=== PATIENT | female | born 1995 | race American Indian/Alaskan Native ===

== ENCOUNTER 2017-03-07 19:18 | Emergency (ER) | payer MEDICAID ==
[2017-03-07 19:47] VITALS: BP 125/71
[2017-03-07] MEDS ORDERED: Cephalexin 500 MG Cap PO ONE (21:07)
[2017-03-07] MEDS ORDERED: Phenazopyridine 95 MG Tab PO ONE (21:07)
--- NOTE | 2017-03-07 21:11 | EDM.PDOC ---
ED HPI GENERAL MEDICAL PROBLEM - General Chief Complaint: Genitourinary Problem Stated Complaint: BLADDER INFECTION Time Seen by Provider: 03/07/17 21:05 Source of Information: Reports: Patient History Limitations: Reports: No Limitations - History of Present Illness INITIAL COMMENTS - FREE TEXT/NARRATIVE: This 21 yo female patient reports to the ED with a 1 week history of lower abdominal pain and dysuria. The patient has not been seen in the Clinic. Onset: Gradual Duration: Week(s): (1), Constant Location: Reports: Abdomen Quality: Reports: Burning Severity: Moderate Improves with: Reports: None Worsens with: Reports: None Associated Symptoms: Reports: No Other Symptoms Lower Groin Pain Score (Numeric/FACES): 6 - Related Data Allergies Allergy/AdvReac Type Severity Reaction Status Date / Time No Known Allergies Allergy Verified 03/07/17 19:50 Home Meds: Home Meds . 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 Musculoskeletal History: Reports: None Neurological History: Reports: None Psychiatric History: Reports: Anxiety, Depression, None Endocrine/Metabolic History: Reports: None Hematologic History: Reports: None Immunologic History: Reports: None Oncologic (Cancer) History: Reports: None Dermatologic History: Reports: None - Infectious Disease History Infectious Disease History: Reports: None - Past Surgical History Head Surgeries/Procedures: Reports: None Social & Family History - Family History Family Medical History: Noncontributory - Tobacco Use Smoking Status *Q: Current Every Day Smoker Years of Tobacco use: 5 Packs/Tins Daily: 0.1 Used Tobacco, but Quit: No Second Hand Smoke Exposure: Yes - Caffeine Use Caffeine Use: Reports: None - Alcohol Use Days Per Week of Alcohol Use: 3 Number of Drinks Per Day: 3 Total Drinks Per Week: 9 - Recreational Drug Use Recreational Drug Use: No ED ROS GENERAL - Review of Systems Review Of Systems: ROS reveals no pertinent complaints other than HPI. ED EXAM, RENAL/ - Physical Exam Exam: See Below Exam Limited By: No Limitations General Appearance: Alert, WD/WN, Mild Distress Eye Exam: Bilateral Eye: EOMI, Normal Inspection Ears: Normal External Exam Nose: Normal Inspection, Normal Mucosa, No Blood Throat/Mouth: Normal Inspection, Normal Lips, Normal Teeth Head: Atraumatic, Normocephalic Neck: Normal Inspection, Full Range of Motion Respiratory/Chest: No Respiratory Distress, Lungs Clear, Normal Breath Sounds Cardiovascular: Normal Peripheral Pulses, Regular Rate, Rhythm (Female) Exam: Deferred Rectal (Female) Exam: Deferred Extremities: Normal Inspection, Normal Range of Motion, Non-Tender, Normal Capillary Refill, No Pedal Edema Neurological: Alert, Oriented, CN II-XII Intact, Normal Cognition, Normal Gait, Normal Reflexes, No Motor/Sensory Deficits Psychiatric: Normal Affect, Normal Mood Skin Exam: Warm, Dry, Intact, Normal Color, No Rash Lymphatic: No Adenopathy Course - Vital Signs Last Recorded V/S: Last Vital Signs Temp 36.8 C 03/07/17 19:45 Pulse 82 03/07/17 19:45 Resp 20 03/07/17 19:45 BP 125/71 03/07/17 19:45 Pulse Ox 100 03/07/17 19:45 - Orders/Labs/Meds Labs: Laboratory Tests 03/07/17 Range/Units 19:51 Urine Color Yellow (YELLOW) Urine Appearance Cloudy (CLEAR) Urine pH 6.0 (5.0-9.0) Ur Specific [place] 1.025 (1.005-1.030) Urine Protein 30 H (NEGATIVE) Urine Glucose (UA) Negative (NEGATIVE) Urine Ketones Negative (NEGATIVE) Urine Occult Blood Small H (NEGATIVE) Urine Nitrite Positive H (NEGATIVE) Urine Bilirubin Negative (NEGATIVE) Urine Urobilinogen 0.2 (0.2-1.0) mg/dL Ur Leukocyte Esterase Moderate H (NEGATIVE) Urine RBC 5-10 H /HPF Urine WBC >100 H (0-5/HPF) /HPF Ur Epithelial Cells Moderate H /HPF Urine Bacteria Many H (0-FEW/HPF) /HPF Meds: Medications Discontinued Medications Generic Name Dose Route Start Last Admin Trade Name Freq PRN Reason Stop Dose Admin Cephalexin 500 mg 03/07/17 21:07 Keflex PO 03/07/17 21:08 ONETIME ONE Phenazopyridine HCl 190 mg 03/07/17 21:07 Urinary Pain Relief PO 03/07/17 21:08 ONETIME ONE Departure - Departure Time of Disposition: 21:08 Disposition: Home, Self-Care 01 Condition: fair Clinical Impression: UTI, Urinary tract infectious disease - Discharge Information Instructions: Urinary Tract Infection, Adult, [id number] Forms: ED Department Discharge Care Plan Goals: The patient was advised of the examination and lab results during the visit. The patient was given an oral dose of Keflex and Pyridium while in the ED. The patient was discharged with a script for Keflex (500 mg) to take 1 by mouth 2 times per day for 7 days and Pyridium #6 to take 1 by mouth 3 times per day. If the patient has any additional symptoms or concerns, the patient should follow- up with her primary care facility or return to the emergency department.
== END 2017-03-07 21:17 | disposition home or self-care (01) ==
LOC: DL.ED 19:18
DX: N39.0 Urinary tract infection, site not specified (principal); F41.9 Anxiety disorder, unspecified; F32.9 Major depressive disorder, single episode, unspecified; F17.210 Nicotine dependence, cigarettes, uncomplicated
CPT/HCPCS: 81001; 87086; 99283; A9270; 87088; 87186

== ENCOUNTER 2017-11-26 10:43 | Inpatient (IN) | payer MEDICAID ==
[2017-11-26] MEDS ORDERED: Misoprostol 400 MCG (4 X 100 MCG TAB) RECTAL PRN (11:09)
[2017-11-26] MEDS ORDERED: Tranexamic Acid 1,000 MG in Sodium Chloride 0.9% 100 ML IV PRN (11:09)
[2017-11-26] MEDS ORDERED: Ondansetron 4 MG/2 ML SDV IV PRN (11:09)
[2017-11-26] MEDS ORDERED: Nalbuphine 20 MG/1 ML Amp IM PRN (11:09)
[2017-11-26] MEDS ORDERED: Methylergonovine 0.2 MG/1 ML Amp IM PRN (11:09)
[2017-11-26] MEDS ORDERED: Lactated Ringers 500 ML IV ONE (11:09)
[2017-11-26] MEDS ORDERED: Lidocaine 1% 30 ML SDV INJECT PRN (11:09)
[2017-11-26] MEDS ORDERED: Acetaminophen 325 MG Tab PO PRN (11:09)
[2017-11-26] MEDS ORDERED: Sodium Chloride 0.9% 10 ML Syringe FLUSH PRN (11:09)
[2017-11-26] MEDS ORDERED: Carboprost Tromethamine 250 MCG/1 ML Amp IM PRN (11:09)
[2017-11-26] MEDS ORDERED: Lactated Ringers 1,000 ML IV SCH (11:15)
[2017-11-26] MEDS ORDERED: Penicillin G Potassium 5 MILLUNITS in Sodium Chloride 0.9% 100 ML IV ONE (11:45)
[2017-11-26] MEDS ORDERED: Nalbuphine 20 MG/1 ML Amp IM ONE (13:05)
[2017-11-26] MEDS ORDERED: fentaNYL 100 MCG/2 ML SDV IVPUSH ONE ×2 (13:08→13:13)
[2017-11-26] MEDS ORDERED: Oxytocin/Normal Saline 30 UNIT/500 ML BAG IV SCH (14:00)
[2017-11-26] MEDS ORDERED: Acetaminophen/oxyCODONE 325-5 MG Tab PO PRN (14:38)
--- NOTE | 2017-11-26 15:06 | HP ---
DATE OF SERVICE: REASON FOR ADMISSION: Established labor. HISTORY OF PRESENT ILLNESS: A 22-year-old, 2, para 1-0-0-1, presenting at 39 weeks and 5 days' gestation, pablo regularly every 1 - 3 minutes. The patient was seen in clinic yesterday with Dr. Burciaga. She had her membranes stripped and was 1.5 cm dilated. Per patient, she has been dilated for the past two weeks at about 1.5 cm. In the past two weeks, she has had nausea, no vomiting. Denies swelling of hands and feet. No headaches. No vision changes. Gestational age based on LMP, confirmed by 21 week ultrasound. Blood type is O positive. She is group B strep positive. Antibody screen negative. Rubella immune. RPR nonreactive. Hepatitis B serum antigen nonreactive. Hep C nonreactive. She has had no quad screen this . One-hour glucose tolerance of 116. Influenza vaccine May 21, 2017. Tdap vaccine October 21, 2017. HIV negative. TSH normal. PAST OBSTETRICAL HISTORY: One prior resulting in of viable 2515 g male at 40 0/7 weeks gestation. That was complicated by intrauterine growth restriction. PAST MEDICAL HISTORY: Schizoaffective-depression and generalized anxiety disorder. Mild hearing impairment. GERD. HSIL on Pap smear in 03/2017 with colposcopy 05/18/17 MEDICATIONS: 1. Zofran for nausea. 2. vitamins. ALLERGIES: None. FAMILY HISTORY: Mother with bipolar disorder. No known diseases in father. Hypertension and diabetes on mother's side of family. Lung cancer in maternal grandfather. Family history is negative for Down syndrome, cystic fibrosis, anemia, bleeding, or clotting disorders. SOCIAL HISTORY: Lives with significant other, Manolo Hearn. This is their first child together. Manolo works at [employer]. 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 They live together in [place]. IMMUNIZATIONS: Up-to-date for immunizations including flu shot and Tdap during this . FEEDING: Will be attempting to breastfeed. REVIEW OF SYSTEMS: Positive for nausea. No headaches. No visual changes. No edema of hands or feet. No arthralgias or myalgias. No neck stiffness. Baby has been active. In the past two weeks, she has not had bleeding, cramping, or leakage. PHYSICAL EXAMINATION: General: The patient is in bed, no acute distress, is feeling her contractions. Vital Signs: Temperature of 98.5 degrees Fahrenheit, pulse of 85, blood pressure of 121/66, respiratory rate of 18. Height 5 feet 2 inches, weight 226 pounds. HEENT and Neck: Negative. PERRLA. No lymphadenopathy. Neck is supple. Lungs: Clear to auscultation anterior and posterior. Heart: S1 and S2. Regular rate and rhythm. Abdomen: Gravid. Cervix is 3 cm dilated, 70% effaced, -2 station. Bag of water is intact. Extremities: No edema. Pulses palpable in extremities. Tattoos over arms and legs. LABORATORY DATA: Hemoglobin on admission 13.4, platelets of 199. NST on arrival shows baseline of 130 to 135, contractions every 1 minute to 3 minutes. IMPRESSION: A 22-year-old 2, para 1-0-0-1, at 39 and 5/7 weeks' gestation expecting normal spontaneous vaginal delivery with: 1. O positive blood type. 2. Rubella immune. 3. Group B streptococcus positive. 4. No quad screen in . 5. Nonstress test, reactive. The patient will be admitted with routine labor orders. We will continue to observe closely. We will consider artificial rupture of membranes or Pitocin infusion pending her clinical course in labor. The patient is not planning on receiving an intrathecal. Anticipate normal spontaneous vaginal delivery. No concern of intrauterine growth restriction this . All questions were answered. Further management depending on course of labor. [facility] /[id number] Meghan Carter MS3 for Dr. Owen Burciaga Patient seen and examined. Agree with noted scribed on my behalf by Meghan Carter, MS3. -[facility] 11/28/17 2338. [facility]ENTER[facility]un
[2017-11-26] MEDS ORDERED: Benzocaine/Menthol 20%-0.5% Spray 56 GM Canister TOP PRN (15:36)
--- NOTE | 2017-11-26 15:45 | DEL ---
DATE: 11/26/2017 PREPROCEDURE DIAGNOSES: 1. A 39 and 5/7 weeks' gestation, based on last menstrual period and 21-week ultrasound. 2. 2, para 1-0-0-1. 3. Spontaneous rupture of membranes 4. No quad screen in . 5. O positive blood type. Rubella immune. Group B streptococcus positive. 6. History of schizoaffective disorder -depressive. 7. Generalized anxiety disorder. 8. Mild hearing impairment. POSTPROCEDURE DIAGNOSES: 1. A 39 and 5/7 weeks' gestation, based on last menstrual period and 21-week ultrasound. 2. 2, now para 2-0-0-2. 3. Spontaneous rupture of membranes 4. No quad screen in . 5. O positive blood type. Rubella immune. Group B streptococcus positive. 6. History of schizoaffective disorder -depressive. 7. Generalized anxiety disorder. 8. Mild hearing impairment. 9. Viable female . BRIEF HISTORY: A 22-year-old female with the above-listed diagnoses, presented to the hospital with contractions occurring regularly at 1 to 3 minutes apart. The patient had been seen in the clinic the day before for stripping of membranes and was 1-1/2 cm dilated at the appointment. The patient was 3 cm dilated at 1145. The patient quickly reached 6 cm dilated, then had a spontaneous rupture of membranes with particulate meconium at 1312. The patient did not want an intrathecal for pain control and received Nubain injection. PROCEDURE IN DETAIL: With the patient in dorsal lithotomy position, she delivered a viable female over intact perineum at 1353. was dried and stimulated. Mouth and nose were bulb suctioned. After at least 45-second delay, the umbilical cord was doubly clamped and then cut. Father of the baby cut the umbilical cord. Cord blood sample was obtained. The was taken to warmer to be cleaned and dried. Placenta was delivered via gentle cord traction and uterine massage. Mother was not tolerating fundal massage well, which was complicated by the need to place a new IV. After placenta was delivered, labia and vagina were inspected. There was a small first-degree perineal tear that was hemostatic, did not require sutures. There was an abrasion on the anterior vaginal wall. IV Pitocin was not running during the delivery of the placenta due to the need for new IV line. New IV line was placed after the placenta had been delivered and the labia and vagina had been inspected. First stage of Labor: 6 -7 hours Second stage: 6 minutes Third stage: 15 minutes ESTIMATED BLOOD LOSS: 300 mL. COMPLICATIONS: None. FINDINGS: Viable female ; scores of 8 and 9; weight 3100 g, 6 pounds 13 ounces; 18-1/2 inches long. DISPOSITION: Mother and baby in the room at this time. Mother will be attempting . [facility] /[id number] Meghan Carter MS3 dictating for Dr. Nikky Soriano. Procedure performed under my direct supervision. Agree with note as scribed on my behalf by Meghan Carter, MS3. -11/28/17 [id number]. MTDD
[2017-11-26] MEDS ORDERED: Penicillin G Potassium 3 MILLUNITS in Sodium Chloride 0.9% 100 ML IV SCH (16:00)
[2017-11-26] MEDS: Docusate Sodium 100 MG Cap PO PRN (20:04)
[2017-11-26] MEDS: Ibuprofen 800 MG Tab PO PRN (22:32)
[2017-11-27] MEDS: Ibuprofen 800 MG Tab PO PRN ×2 (08:23→21:03)
[2017-11-27] MEDS: Docusate Sodium 100 MG Cap PO PRN (08:23)
[2017-11-27] MEDS: Prenatal Multivitamin with Calcium/Folic Acid/Iron Tab PO SCH (08:26)
--- NOTE | 2017-11-27 10:49 | PCM.SN ---
- Free Text/Narrative Note: Post Delivery Day #1 11/27/2017 Subjective: Patient is ambulating without assistance and tolerating oral intake. Her pain has been well-controlled, and her bleeding has been minimal. She has not had nausea, vomiting, blurred vision, diarrhea, shortness of breath, or any other complaints. She is feeding. She would like to know when she can have her IV taken out. Objective: Vitals: reviewed Gen: No distress CV: Well-perfused, 2+ distal pulses, regular rate and rhythm, no audible murmurs Resp: Non-labored, symmetrical chest expansion, clear to auscultation Abd: Fundus is firm and below umbilicus. Ext: Moves All Extremities Well, no edema. Labs: No new labs to review Assessment: Patient is a 22 year old G2 now P2 status post ( day #1) who is doing well. Plan: - Routine Nursing - vitamin - Encourage breast feeding - Likely discharge tomorrow
--- NOTE | 2017-11-28 07:58 | PCM.SN ---
- Free Text/Narrative Note: Discharge Summary Admit date: 11/26/2017 Discharge date: 11/28/2017 Delivering Physician: Dr. Leblanc Primary Physician: Waleska Mina NP Admission Diagnoses: 1. Active Labor at Term Summary of Hospital Course: Jailene is a 22 year old G2 now P2 at 39w5d who presented to labor and delivery in active labor. She dilated quickly and underwent spontaneous vaginal delivery and delivered a viable infant weighing 3100 grams with Apgars of 8 and 9 at 1 and 5 minutes respectively. EBL was 300 mL. The patient had an unremarkable course. By day 2, the patient was doing well; ambulating, voiding, and tolerating general diet. Her pain was well controlled with oral pain medications, and was she was discharged to home. Pre delivery hemoglobin was 12.6 gm/dL. Post delivery hemoglobin was 11.7 gm/dL. Discharge Exam: Gen: No distress CV: Well-perfused, 2+ distal pulses Resp: Non-Labored, symmetrical chest expansion Abd: Fundus is firm and below umbilicus. Ext: Moves all extremities well, no edema. Discharge (or Final) Diagnoses: 1. Intrauterine at 39w5d 2. Normal Spontaneous Vaginal Delivery Discharge Details: Admission Condition: good Discharged Condition: good, stable Disposition: Home Discharge Medications: Continue PNV Diet: regular diet Activity: no heavy lifting for 2 weeks, pelvic rest for 6 weeks. Follow-up with Dr. Leblanc in 6 weeks for visit.
[2017-11-28] MEDS: Ibuprofen 800 MG Tab PO PRN (08:04)
[2017-11-28] MEDS: Docusate Sodium 100 MG Cap PO PRN (08:04)
[2017-11-28] MEDS: Prenatal Multivitamin with Calcium/Folic Acid/Iron Tab PO SCH (08:04)
[2017-11-28 08:27] VITALS: BP 114/65
== END 2017-11-28 10:20 | disposition home or self-care (01) | DRG 775 ==
LOC: DL.OBCHECK 10:43 → DL.OB 11:00 → OBSVTOIN 13:53
PROVIDERS: ADMIT Family Medicine; ATTEND Family Medicine
PROC: 10E0XZZ Delivery of Products of Conception, External Approach (ICD-10-PCS; principal; 2017-11-26)
DX: O99.824 Streptococcus B carrier state complicating childbirth (principal); Z3A.39 39 weeks gestation of pregnancy; Z37.0 Single live birth; O42.02 Full-term premature rupture of membranes, onset of labor within 24 hours of rupture; O77.0 Labor and delivery complicated by meconium in amniotic fluid
CPT/HCPCS: 36415; 59409; 85027; A9270-GY; J2300; J2540; J2590; J7050; J7120

== ENCOUNTER 2018-11-01 09:47 | Emergency (ER) | payer MEDICAID ==
[2018-11-01] MEDS ORDERED: Fluorescein 1 MG Ophth Strip EYERT ONE (09:55)
[2018-11-01] MEDS ORDERED: Tetracaine HCl/PF 0.5% 4 ML Bottle EYERT ONE (09:56)
[2018-11-01] MEDS ORDERED: Gentamicin 0.3% Ophth Soln 5 ML Bottle EYERT ONE (09:57)
[2018-11-01 10:01] VITALS: BP 121/68
--- NOTE | 2018-11-01 10:03 | EDM.PDOC ---
ED HPI GENERAL MEDICAL PROBLEM - General Chief Complaint: Eye Problems Stated Complaint: SCRATCH ON EYE Time Seen by Provider: 11/01/18 10:00 Source of Information: Reports: Patient, RN, RN Notes Reviewed History Limitations: Reports: No Limitations - History of Present Illness INITIAL COMMENTS - FREE TEXT/NARRATIVE: Pt c/o Rt eye pain sustained today when her baby accidently scratched her eye with it's finger nail. She denies any other injury. Last tetanus vaccine was less than 2 years ago. Onset: Today Duration: Constant Location: Reports: Other (Right eye) Quality: Reports: Ache Severity: Severe Improves with: Reports: None Worsens with: Reports: None Associated Symptoms: Reports: No Other Symptoms - Related Data Allergies Allergy/AdvReac Type Severity Reaction Status Date / Time No Known Allergies Allergy Verified 11/01/18 09:56 Home Meds: Home Meds . 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 Musculoskeletal History: Reports: None Neurological History: Reports: None Psychiatric History: Reports: Anxiety, Depression, Other (See Below) Other Psychiatric History: schizoaffective disorder Endocrine/Metabolic History: Reports: None Hematologic History: Reports: None Immunologic History: Reports: None Oncologic (Cancer) History: Reports: None Dermatologic History: Reports: None - Infectious Disease History Infectious Disease History: Reports: None - Past Surgical History Head Surgeries/Procedures: Reports: None Social & Family History - Family History Family Medical History: Noncontributory - Caffeine Use Caffeine Use: Reports: Soda - Living Situation & Occupation Living situation: Reports: with Family ED ROS GENERAL - Review of Systems Review Of Systems: ROS reveals no pertinent complaints other than HPI. ED EXAM GENERAL W FULL EYE - Physical Exam Exam: See Below Exam Limited By: No Limitations General Appearance: Alert, WD/WN, No Apparent Distress Eye Exam: Right Eye: Corneal Abrasion, Left Eye: Normal Inspection, Bilateral Eye: EOMI, PERRL Eyelids: Bilateral: Normal Appearance Conjunctiva & Sclera: Right: Injected, Left: Normal Appearance Cornea Exam: Right: Corneal Abrasion, Examined with Flourescein Extraocular Movements: Bilateral: Intact Pupils: Normal Accommodation Pupillary Size: Bilateral: 3 mm Pupillary Reaction: Bilateral: Brisk Anterior Chamber: Right: Normal Appearance Throat/Mouth: Normal Inspection Head: Atraumatic, Normocephalic Neck: Normal Inspection Respiratory/Chest: No Respiratory Distress Neurological: Alert, Oriented, No Motor/Sensory Deficits Psychiatric: Normal Mood Skin Exam: Warm, Dry, Intact, Normal Color, No Rash Course - Vital Signs Last Recorded V/S: Last Vital Signs Temp 36.3 C 11/01/18 10:00 Pulse 66 11/01/18 10:00 Resp 16 11/01/18 10:00 BP 121/68 11/01/18 10:00 Pulse Ox 99 11/01/18 10:00 - Orders/Labs/Meds Meds: Medications Discontinued Medications Generic Name Dose Route Start Last Admin Trade Name Adeline PRN Reason Stop Dose Admin Fluorescein Sodium 1 mg 11/01/18 09:55 11/01/18 10:08 Ful-Christel EYERT 11/01/18 09:56 1 mg ONETIME ONE Administration Gentamicin Sulfate 1 ml 11/01/18 09:57 11/01/18 10:08 Garamycin 0.3% Ophth Soln EYERT 11/01/18 09:58 1 ml ONETIME ONE Administration Tetracaine HCl 1 ml 11/01/18 09:56 11/01/18 10:08 Tetracaine 0.5% Steri-Unit Rita EYERT 11/01/18 09:57 1 ml ONETIME ONE Administration Departure - Departure Time of Disposition: 10:11 Disposition: Home, Self-Care 01 Condition: Good Clinical Impression: Corneal abrasion Qualifiers: Encounter type: initial encounter Laterality: right Qualified Code(s): S05.01XA - Injury of conjunctiva and corneal abrasion without foreign body, right eye, initial encounter - Discharge Information *PRESCRIPTION DRUG MONITORING PROGRAM REVIEWED*: Not Applicable *COPY OF PRESCRIPTION DRUG MONITORING REPORT IN PATIENT OBI: Not Applicable Instructions: Corneal Abrasion Forms: ED Department Discharge Additional Instructions: Alcaine: One drop into right eye every 4 hours as needed for pain for no more than 24 hours. Gentamicin Ophthalmic Solution 0.3%: One drop into right eye four times a day for 5 days. Use over the counter Ibuprofen (Motrin/Advil) 200mg: Take 3 tablets by mouth every 6 hours as needed for pain. Take with food. Do not exceed 12 tablets in 24 hours. Follow up in eye clinic in 2 to 3 days for recheck.
== END 2018-11-01 10:22 | disposition home or self-care (01) ==
LOC: DL.ED 09:47
DX: S05.01XA Injury of conjunctiva and corneal abrasion without foreign body, right eye, initial encounter (principal); X58.XXXA Exposure to other specified factors, initial encounter
CPT/HCPCS: 99283; A9270

== ENCOUNTER 2020-01-15 16:41 | Emergency (ER) | payer SELFPAY ==
[2020-01-15 17:01] VITALS: BP 124/70; PULSE 73
--- NOTE | 2020-01-15 17:46 | EDM.PDOC ---
ED HPI GENERAL MEDICAL PROBLEM - General Chief Complaint: Genitourinary Problem Stated Complaint: BLADDER INFECTION Time Seen by Provider: 01/15/20 17:45 Source of Information: Reports: Patient, RN, RN Notes Reviewed History Limitations: Reports: No Limitations - History of Present Illness INITIAL COMMENTS - FREE TEXT/NARRATIVE: Pt presents to ER with c/o frequency, urgency, and burning with urination. Patient states she has been having the symptoms for about 2 weeks, but she thought it would clear up on its own. Denies any flank pain, fever or chills, N/ V/D. Patient states she is unsure if blood in the urine as she currently has her menses. Onset: Gradual Pelvic Pain Score (Numeric/FACES): 8 - Related Data Allergies Allergy/AdvReac Type Severity Reaction Status Date / Time No Known Allergies Allergy Verified 01/15/20 17:01 Home Meds: Home Meds . 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: Reports: , Other (See Below) Other MYSQL DEVELOPER History: colposcopy Musculoskeletal History: Reports: None Neurological History: Reports: None Psychiatric History: Reports: Anxiety, Depression, Other (See Below) Other Psychiatric History: schizoaffective disorder Endocrine/Metabolic History: Reports: None Hematologic History: Reports: None Immunologic History: Reports: None Oncologic (Cancer) History: Reports: None Dermatologic History: Reports: None - Infectious Disease History Infectious Disease History: Reports: None - Past Surgical History Head Surgeries/Procedures: Reports: None Social & Family History - Family History Family Medical History: Noncontributory - Tobacco Use Smoking Status *Q: Current Every Day Smoker Years of Tobacco use: 6 Packs/Tins Daily: 0.5 Second Hand Smoke Exposure: No - Caffeine Use Caffeine Use: Reports: Coffee, Soda - Recreational Drug Use Recreational Drug Use: No - Living Situation & Occupation Living situation: Reports: with Family ED ROS GENERAL - Review of Systems Review Of Systems: Comprehensive ROS is negative, except as noted in HPI. ED EXAM, RENAL/ - Physical Exam Exam: See Below Exam Limited By: No Limitations General Appearance: Alert, WD/WN, No Apparent Distress Eye Exam: Bilateral Eye: EOMI, Normal Inspection Ears: Normal External Exam, Hearing Grossly Normal Nose: Normal Inspection Throat/Mouth: Normal Inspection, Normal Voice, No Airway Compromise Head: Atraumatic, Normocephalic Neck: Normal Inspection, Supple, Non-Tender, Full Range of Motion Respiratory/Chest: No Respiratory Distress, Lungs Clear, Normal Breath Sounds, No Accessory Muscle Use, Chest Non-Tender Cardiovascular: Normal Peripheral Pulses, Regular Rate, Rhythm, No Edema, No Gallop, No JVD, No Murmur, No Rub GI/Abdominal: Normal Bowel Sounds, Soft, Non-Tender, No Organomegaly, No Distention, No Abnormal Bruit, No Mass (Female) Exam: Deferred Rectal (Female) Exam: Deferred Back Exam: Normal Inspection, Full Range of Motion. No: CVA Tenderness (L), CVA Tenderness (R) Extremities: Normal Inspection, Normal Range of Motion, Non-Tender, Normal Capillary Refill, No Pedal Edema Neurological: Alert, Oriented, CN II-XII Intact, Normal Cognition, Normal Gait, Normal Reflexes, No Motor/Sensory Deficits Psychiatric: Normal Affect, Normal Mood Skin Exam: Warm, Dry, Intact, Normal Color, No Rash Lymphatic: No Adenopathy Course - Vital Signs Last Recorded V/S: Last Vital Signs Temp 97 F 01/15/20 16:53 Pulse 73 01/15/20 16:53 Resp 16 01/15/20 16:53 BP 124/70 01/15/20 16:53 Pulse Ox 99 01/15/20 16:53 - Orders/Labs/Meds Orders: Active Orders 24 hr Category Date Time Status CULTURE URINE [RM] Stat Lab 01/15/20 16:50 Received Labs: Laboratory Tests 01/15/20 01/15/20 Range/Units 16:50 16:50 Urine Color Yellow (YELLOW) Urine Appearance Cloudy (CLEAR) Urine pH 7.0 (5.0-9.0) Ur Specific [place] >= 1.030 (1.005-1.030) Urine Protein 100 H (NEGATIVE) Urine Glucose (UA) Negative (NEGATIVE) Urine Ketones Negative (NEGATIVE) Urine Occult Blood Large H (NEGATIVE) Urine Nitrite Negative (NEGATIVE) Urine Bilirubin Negative (NEGATIVE) Urine Urobilinogen 1.0 (0.2-1.0) mg/dL Ur Leukocyte Esterase Moderate H (NEGATIVE) Urine RBC >100 H /HPF Urine WBC >100 H (0-5/HPF) /HPF Ur Epithelial Cells Few (NOT SEEN) /HPF Urine Bacteria Few (0-FEW/HPF) /HPF Urine Mucus Few H (NOT SEEN) /LPF Urine HCG, Qual Negative Meds: Medications Discontinued Medications Generic Name Dose Route Start Last Admin Trade Name Adeline PRN Reason Stop Dose Admin Nitrofurantoin Macrocrystals 100 mg 01/15/20 17:52 01/15/20 18:00 Macrobid PO 01/15/20 17:53 100 mg ONETIME ONE Administration Phenazopyridine HCl 190 mg 01/15/20 17:53 01/15/20 18:00 Urinary Pain Relief PO 01/15/20 17:54 190 mg ONETIME ONE Administration Departure - Departure Time of Disposition: 18:02 Disposition: Home, Self-Care 01 Condition: Good Clinical Impression: UTI, Urinary tract infectious disease - Discharge Information *PRESCRIPTION DRUG MONITORING PROGRAM REVIEWED*: No *COPY OF PRESCRIPTION DRUG MONITORING REPORT IN PATIENT OBI: No Instructions: Urinary Tract Infection, Adult, [id number] Forms: ED Department Discharge Additional Instructions: RX: Macrobid, Pyridium Drink plenty of water Follow up with your primary care facility if no improvement May use Tylenol and/or Ibuprofen as directed for pain Sepsis Event Note - Evaluation Sepsis Screening Result: No Definite Risk - Focused Exam Vital Signs: Vital Signs Temp Pulse Resp BP Pulse Ox 01/15/20 16:53 97 F 73 16 124/70 99 Date Exam was Performed: 01/15/20 Time Exam was Performed: 18:57 - My Orders Last 24 Hours: My Active Orders 01/15/20 16:50 CULTURE URINE [RM] Stat - Assessment/Plan Last 24 Hours: My Active Orders 01/15/20 16:50 CULTURE URINE [RM] Stat
[2020-01-15] MEDS ORDERED: Nitrofurantoin Monohydrate/Macrocrystalline 100 MG Cap PO ONE (17:52)
[2020-01-15] MEDS ORDERED: Phenazopyridine 95 MG Tab PO ONE (17:53)
== END 2020-01-15 18:03 | disposition home or self-care (01) ==
LOC: DL.ED 16:41
DX: N39.0 Urinary tract infection, site not specified (principal); F17.210 Nicotine dependence, cigarettes, uncomplicated
CPT/HCPCS: 81001; 81025; 87086; 87088; 87186; 99283; A9270-GY

== ENCOUNTER 2021-10-06 22:09 | Emergency (ER) | payer MEDICAID ==
[2021-10-06 22:53] VITALS: BP 138/77; PULSE 78
[2021-10-06 23:38] LABS: CORONAVIRUS COVID-19 NAA NEGATIVE (NEGATIVE)
== END 2021-10-07 00:21 | disposition home or self-care (01) ==
LOC: DL.ED 22:09
DX: J10.1 Influenza due to other identified influenza virus with other respiratory manifestations (principal); Z20.822 Contact with and (suspected) exposure to COVID-19
CPT/HCPCS: 0240U; 87081; 87430; 99283

== ENCOUNTER 2022-06-07 21:09 | Emergency (ER) | payer MEDICAID | END 2022-06-07 21:39 | disposition left against medical advice (07) | LOC: DL.ED 21:09 | DX: Z53.21 Procedure and treatment not carried out due to patient leaving prior to being seen by health care provider (principal) ==

== ENCOUNTER 2025-05-17 20:40 | Emergency (ER) | payer MEDICAID ==
[2025-05-17 20:53] VITALS: BP 130/113; PULSE 104
== END 2025-05-17 22:34 | disposition home or self-care (01) ==
LOC: DL.ED 20:40
DX: F41.0 Panic disorder [episodic paroxysmal anxiety] (principal); F43.0 Acute stress reaction; F17.210 Nicotine dependence, cigarettes, uncomplicated
CPT/HCPCS: 99283; 99284; A9270-GY

== ENCOUNTER 2025-08-06 21:55 | Emergency (ER) | payer MEDICAID ==
[2025-08-06 22:05] VITALS: BP 114/82; PULSE 70
[2025-08-06 22:15] LABS: APPEARANCE,URINE SLIGHTLY CLOUDY (CLEAR); GLUCOSE,URINE NEGATIVE (NEGATIVE); OCCULT BLOOD,URINE LARGE (NEGATIVE)
[2025-08-06 22:25] LABS: EPITHELIAL CELLS,URINE FEW /HPF (NOT SEEN)
[2025-08-06] MEDS ORDERED: Nitrofurantoin Monohydrate/Macrocrystalline 100 MG Cap PO ONE (22:32)
[2025-08-06] MEDS: Amoxicillin/Clavulanate K 875-125 MG Tab PO ONE (23:00)
[2025-08-06] MEDS: Phenazopyridine 95 MG Tab PO ONE (23:10)
== END 2025-08-06 23:11 | disposition home or self-care (01) ==
LOC: DL.ED 21:55
DX: N30.01 Acute cystitis with hematuria (principal)
CPT/HCPCS: 81001; 87086; 99283; A9270

== ENCOUNTER 2025-08-13 13:25 | Emergency (ER) | payer MEDICAID ==
[2025-08-13] MEDS ORDERED: Sodium Chloride 0.9% 10 ML Syringe FLUSH PRN (13:48)
[2025-08-13] MEDS: Ondansetron 4 MG/2 ML SDV IVPUSH ONE (14:07)
[2025-08-13 14:15] LABS: BASOPHILS PERCENT AUTO 0.3 % (0.0-1.0); EOSINOPHILS PERCENT AUTO 1.8 % (1.0-3.0); LYMPHOCYTES PERCENT AUTO 31.4 % (20.5-50.1); MONOCYTES PERCENT AUTO 8.0 % (2-8); NEUTROPHILS PERCENT AUTO 58.5 % (42.2-75.2); PLATELET COUNT,PLT 219 10^3/uL (150-450); RED BLOOD CELL COUNT 4.39 10^6/uL (4.2-5.4); WHITE BLOOD CELL COUNT,WBC 6.0 10^3/uL (5.0-10.0)
[2025-08-13 14:34] LABS: A/G RATIO 1.1; ALANINE AMINOTRANSFERASE,ALT 30 U/L (14-59); ASPARTATE AMNIOTRANSFERASE,AST 18 U/L (15-37); BILIRUBIN TOTAL 0.6 mg/dL (0.2-1.0); BLOOD UREA NITROGEN,BUN 7 mg/dL (7-18); CARBON DIOXIDE,CO2 27 mmol/L (21-32); CHLORIDE,CL 105 mmol/L (98-107); CREATININE 0.73 mg/dL (0.55-1.02); EST CRCL DRUG DOSING (CG) 91.52 mL/min; GLUCOSE RANDOM 83 mg/dL (70-99); POTASSIUM,K 3.9 mmol/L (3.5-5.1); PROTEIN TOTAL,TP 7.8 g/dL (6.4-8.2); SODIUM,NA 141 mmol/L (136-145)
[2025-08-13 14:38] LABS: ESTIMATED GFR 112 mL/min (>=60); ETHANOL BLOOD MEDICAL < 3 mg/dL (0)
[2025-08-13 15:17] VITALS: BP 117/74; PULSE 62
== END 2025-08-13 15:14 | disposition home or self-care (01) ==
LOC: DL.ED 13:25
DX: N39.0 Urinary tract infection, site not specified (principal); F41.9 Anxiety disorder, unspecified
CPT/HCPCS: 36415; 80053; 80307; 85025; 96361; 96374; 99283; 99284; A9270; J2405; J7030